=== PATIENT | female | born 1985 | race Two or more races ===

== ENCOUNTER 2017-09-11 13:53 | Emergency (ER) | payer MEDICAID, OTHER ==
[~2017-09-11] VITALS: Ht 160 cm; Wt 68.0 kg
[2017-09-11 14:27] VITALS: BP 138/81
[2017-09-11] MEDS ORDERED: KETOROLAC TROMETH 60MG/2ML VIAL IM ONE (15:30)
== END 2017-09-11 17:10 | disposition home or self-care (01) ==
LOC: EDBD 13:53 → ER 13:53
DX: M25.511 Pain in right shoulder (principal); V43.62XA Car passenger injured in collision with other type car in traffic accident, initial encounter; Y93.89 Activity, other specified; Y99.8 Other external cause status; Y92.410 Unspecified street and highway as the place of occurrence of the external cause
CPT/HCPCS: 96372; 99283; J1885

== ENCOUNTER 2024-04-16 14:27 | Emergency (ER) | payer MEDICAID ==
--- NOTE | 2024-04-16 14:52 | ED.PDOC ---
SOB-HPI HPI Comments 38-year-old with no MHx presents for URI symptoms Complains of nonproductive cough x4 days Unable to get adequate relief with [id number] cough medications Denies fevers chills night sweats unintentional weight loss Denies persistent chest pain, shortness of breath, leg swelling Denies history of asthma nor any breathing conditions Denies history of pneumonia Denies recent international travel Time Seen by MD: 14:49 Primary Care Provider: NONE Reviewed notes: Nurses Notes, Medications, Allergies Information Source: Patient Past Medical History PAST MEDICAL HISTORY: Denies Surgical History: Denies all surgeries MANAGER FLOAT History: No Pertinent MANAGER FLOAT History Physical Exam General Appearance: No Apparent Distress, Normal HEENT: Normal ENT Inspection, Pharynx Normal, TMs Normal Neck: Full Range of Motion, Non-Tender, Normal, Normal Inspection Respiratory: Chest Non-Tender, Lungs Clear, No Accessory Muscle Use, No Respiratory Distress, Normal Breath Sounds Cardiovascular: No Edema, No JVD, No Murmur, No Gallop, Normal Peripheral Pulses, Regular Rate/Rhythm Breast Exam: Deferred Gastrointestinal: No Organomegaly, Non Tender, No Pulsatile Mass, Normal Bowel Sounds, Soft Genitalia: Deferred Pelvic: Deferred Rectal: Deferred Extremities: No calf tenderness, Normal capillary refill, Normal inspection, Normal range of motion, Non-tender, No pedal edema Musculoskeletal : Apperance: Normal Neurologic: Alert, visiting housekeeper II-XII nml as Tested, No Motor Deficits, Normal Affect, Normal Mood, No Sensory Deficits Cerebellar Function: Normal Reflexes: Normal Skin: Dry, Normal Color, Warm Lymphatic: No Adenopathy Was a procedure done? Was a procedure done?: No Differential Dx Differential Diagnosis: Asthma, Bronchitis, Pneumonia, Otitis Media, URI X-Ray, Labs, Meds, VS Vital Signs Date Time Temp Pulse Resp B/P (MAP) Pulse Ox O2 Delivery O2 Flow Rate FiO2 04/16/24 15:13 98.8 99 20 132/92 (105) 99 98.8 04/16/24 15:13 99 20 99 Room Air 04/16/24 14:43 98.8 99 20 132/92 (105) 99 Current Medications Medications (Trade) Dose Ordered Sig/Anne Route Start Time Stop Time Status Last Admin Promethazine HCl/ Codeine (Phenergan W/ Codeine) 5 ml ONCE ONCE PO 04/16/24 15:00 04/16/24 15:20 DC 04/16/24 15:00 PATIENT: HOANG KRAUSECT: [id number]: [id number] : 1985 LOC: ER ROOM / BED: / AGE / SEX: 38 / F ADM STATUS: REG ER SERVICE [id number] ORDERING PHYSICIAN: MARYAM GONSALES NP PROCEDURE(s): CXR2 - CHEST TWO VIEWS ROUTINE REASON: cough ORDER NUMBER(s): [id number], ACCESSION NUMBER(s): [id number] XY CHEST TWO VIEWS ROUTINE CLINICAL HISTORY: cough COMPARISON: None TECHNIQUE: Frontal and lateral view of the chest was obtained FINDINGS: Lines and Tubes: None Lungs: No focal consolidation. Pleura: No effusion. No pneumothorax. Cardiomediastinal contours: Unremarkable Bones: No acute osseous abnormality. IMPRESSION: 1. No radiographic evidence of acute cardiopulmonary disease. HS:Y ATED BY: MICKI HOLLOWAY DO DICTATED DATE/TIME: 04/16/241517 SIGNED BY: MICKI HOLLOWAY DO SIGNED DATE/TIME: 04/16/241517 CC: X-Ray, Labs, Meds, VS Comment History and physical consistent of URI Take medication as prescribed No concerns for pneumonia at this time. No risk factors. No indication for antibiotics Discussed that cough can linger up to 6 weeks after viral URI ED precautions if cough does not alleviate or if cough worsens Supportive care and return precautions discussed Counseled viral infection and explained that antibiotics would not be helpful in resolving the illness sooner. Recommended vitamin C, rest, handwashing, and symptomatic care. Expect 2-week course with possibly of cough lingering up to 6 weeks. Nonpharmacological remedies for fluids has been recommended as well On reevaluation, patient had symptomatic improvement. Patient is stable for discharge at this time. External notes reviewed. Test results and diagnostic imaging interpreted. All diagnostic findings, discharge care, education and instructions provided Follow-up with PCP in 2 to 3 days Patient verbalized understanding and agreed to treatment plan Vital signs stable, afebrile, no acute distress noted Patient ambulatory with strong steady gait Advised to return precautions for any new or worsening symptoms, return to ER immediately for re-evaluation Patient is aware that the purpose of this visit was for an acute medical emergency requiring emergent stabilization. Chronic conditions, including malignancies have not been ruled out. Patient is instructed to follow up with PCP as directed and discharge instructions for continued care and workup. If unable to arrange follow-up, patient is to return to the emergency department for reassessment. Patient (parent or legal guardian if applicable) was given verbal and written discharge instructions and acknowledges understanding. Time of 1ST Reevaluation: 15:38 Reevaluation 1ST: Improved Consultation: Surgery Patient Education/Counseling: Diagnosis, Treatment Family Education/Counseling: Diagnosis, Treatment Departure 1 Departure Time of Disposition: 15:38 Impression: Primary Impression: Bronchitis Disposition: HOME / SELF CARE / HOMELESS Condition: Stable e-Prescriptions Promethazine-Dm (Promethazine Dm 6.25-15 mg/5Ml) 1 Polina Polina 5 ML PO TID for 10 Days, #150 ML 0 Refills Prov: MARYAM GONSALES NP 04/16/24 Benzonatate (Benzonatate) 100 Mg Cap 1 CAP PO TID for 10 Days, #30 CAP 0 Refills Prov: MARYAM GONSALES NP 04/16/24 Azithromycin (Azithromycin) 250 Mg Tab 250 MG PO DAILY MDD 500 for 5 Days, #6 TAB 0 Refills 2 TABLETS ORALLY ON DAY ONE, THEN 1 TABLET ORALLY DAILY FOR 4 DAYS Prov: MARYAM GONSALES NP 04/16/24 Discharged With: Self Critical Care Note Critical Care Time?: No Stability Stability form required: No Heart Score Heart Score: Heart Score Response (Comments) Value History N/A 0 EKG N/A 0 Age N/A 0 Risk Factors N/A 0 Troponin N/A 0 Total 0 MARYAM GONSALES NP Apr 16, 2024 14:52
[2024-04-16] MEDS: PROMETHAZINE W/CODEINE 5 ML ORAL SYRUP PO ONE (15:00)
[2024-04-16 15:13] VITALS: BP 132/92; PULSE 99; RESP 20; TEMP 98.8; O2SAT 99
--- NOTE | 2024-04-16 15:20 | DVH ---
XY CHEST TWO VIEWS ROUTINE CLINICAL HISTORY: cough COMPARISON: None TECHNIQUE: Frontal and lateral view of the chest was obtained FINDINGS: Lines and Tubes: None Lungs: No focal consolidation. Pleura: No effusion. No pneumothorax. Cardiomediastinal contours: Unremarkable Bones: No acute osseous abnormality. IMPRESSION: 1. No radiographic evidence of acute cardiopulmonary disease. HS:Y
[2024-04-16] MEDS ORDERED: AZIT-43 PO (15:40)
[2024-04-16] MEDS ORDERED: PROM1SOL4 PO (15:40)
[2024-04-16] MEDS ORDERED: BENZ100C97 PO (15:40)
== END 2024-04-16 15:46 | disposition home or self-care (01) ==
LOC: ER 14:27
DX: J40 Bronchitis, not specified as acute or chronic (principal)
CPT/HCPCS: 71046